=== PATIENT | female | born 1995 | race African-American/Black ===

== ENCOUNTER → 2022-10-15 | Outpatient (CLI) | payer OTHER ==
[~2022-10-15] MED LIST: ACET50CA PO; ACETAMINOPHEN 325 MG TAB As Ordered ONE; ACETAMINOPHEN TAB 650MG DOSE (2X325MG) PO PRN; CETI5SOL3 PO; LIDOCAINE 1% MDV 20ML VIAL As Ordered ONE
[2022-10-15 11:53] LABS: CSF TUBE# TP TUBE 1; TOTAL PROTEIN,CSF 10.9 MG/DL (15-45)
[2022-10-15 11:56] LABS: CSF TUBE# GLU TUBE 1
[2022-10-15 12:09] VITALS: BP 125/77
[2022-10-15 12:35] LABS: APPEARANCE, CSF CLEAR (CLEAR); COLOR, CSF COLORLESS (COLORLESS); CSF TUBE# CELL CNT TUBE 1
== END ==
LOC: M IRPRO 09:03
PROVIDERS: ATTEND Psychiatry & Neurology Neurology
DX: G93.2 Benign intracranial hypertension (principal)

== ENCOUNTER 2023-02-09 00:22 | Emergency (ER) | payer OTHER ==
[~2023-02-09] VITALS: Ht 154.9 cm; Wt 72.5 kg
[~2023-02-09 00:22] MED LIST changes: -ACETAMINOPHEN 325 MG TAB As Ordered ONE; -ACETAMINOPHEN TAB 650MG DOSE (2X325MG) PO PRN; -LIDOCAINE 1% MDV 20ML VIAL As Ordered ONE
[2023-02-09 00:24] VITALS: BP 116/58
[2023-02-09] MEDS ORDERED: ASPI81CH33 PO (00:31)
[2023-02-09] MEDS ORDERED: PREN29CH2 PO (00:31)
== END 2023-02-09 03:55 | disposition left against medical advice (07) ==
LOC: M ED 00:22
DX: Z53.21 Procedure and treatment not carried out due to patient leaving prior to being seen by health care provider (principal)

== ENCOUNTER 2023-07-12 15:28 | Inpatient (IN) | payer OTHER ==
[2023-07-12] VITALS (21 sets, daily range): BP systolic 127–166; BP diastolic 60–106
[~2023-07-12] VITALS: Ht 154.9 cm; Wt 83.5 kg
[~2023-07-12 15:28] MED LIST changes: +ASPI81CH33 PO; +PREN29CH2 PO
[2023-07-12] MEDS ORDERED: LACTATED RINGER'S 1000 ML IV STA (17:01)
[2023-07-12] MEDS ORDERED: TRANEXAMIC ACID INJection 1,000 MG in NS 100 ML IV PRN (17:05)
[2023-07-12] MEDS ORDERED: METHYLERGONOVINE MALEATE 0.2MG/ML 1ML VIAL IM PRN ×2 (17:05→23:10)
[2023-07-12] MEDS ORDERED: LIDOCAINE 1% MDV 20ML VIAL INFIL PRN (17:05)
[2023-07-12] MEDS ORDERED: OXYTOCIN DRIP 30 UNITS in IV 1 EA IV PRN ×4 (17:05)
[2023-07-12 17:10] LABS: HEMATOCRIT 45.3 % (36.0-47.0); HEMOGLOBIN 14.3 g/dl (12.0-15.5); MEAN CORPUSCULAR HEMOGLOBIN 26.5 pg (27.0-33.0); MEAN CORPUSCULAR HGB CONC 31.6 g/dl (32.0-36.5); MEAN CORPUSCULAR VOLUME 83.9 fl (80.0-96.0); PLATELET COUNT, AUTOMATED 270 10^3/uL (150-450); WHITE BLOOD COUNT 11.3 10^3/uL (4.0-10.0)
[2023-07-12] MEDS: LR 1,000 ML IV SCH ×2 (17:29→19:30)
[2023-07-12] MEDS ORDERED: diphenhydrAMINE 50MG/ML VIAL IV PRN (17:55)
[2023-07-12] MEDS ORDERED: ONDANSETRON 4MG 2ML VIAL IV PRN ×2 (17:55→23:10)
[2023-07-12] MEDS ORDERED: EPIDURAL/PCA KEYS XX PRN (17:55)
[2023-07-12] MEDS ORDERED: ePHEDrine SULFATE 25 MG/5 ML(5MG/ML) SYRINGE IVP PRN (17:55)
[2023-07-12] MEDS ORDERED: FENTANYL/ROPIVACAINE/NACL BAG 100 ML EPIDURAL SCH (17:55)
[2023-07-12] MEDS ORDERED: LR 500 ML IV PRN (17:55)
[2023-07-12] MEDS ORDERED: NALOXONE INJ 0.4MG/1ML VIAL IV PRN (17:55)
[2023-07-12 22:57] LABS: CORD GAS HCO3 V 19.9 MMOL/L; CORD GAS PCO2 V 40.7 mmHg; CORD GAS PH V 7.307 UNITS; CORD GAS PO2 V 45.4 mmHg; CORD GAS SBC V 19.4 MMOL/L; CORD GAS TCO2 V 21.1 MMOL/L
[2023-07-12 23:02] LABS: CORD GAS ABE A -8.6; CORD GAS O2 SAT A 86.7 %; CORD GAS PCO2 A 40.8 mmHg; CORD GAS PH A 7.262 UNITS; CORD GAS PO2 A 41.1 mmHg; CORD GAS SBC A 17.5 MMOL/L; CORD GAS TCO2 A 19.2 MMOL/L
[2023-07-12] MEDS ORDERED: RHOGAM 300MCG (1500IU) INJ IM SCH (23:10)
[2023-07-12] MEDS ORDERED: ACETAMINOPHEN 500 MG TAB PO SCH (23:10)
[2023-07-12] MEDS ORDERED: IBUPROFEN 800 MG TAB PO SCH (23:10)
[2023-07-12] MEDS ORDERED: LR 1,000 ML IV SCH (23:10)
[2023-07-12] MEDS ORDERED: METOCLOPRAMIDE INJ 10MG/2ML VIAL IV PRN (23:10)
[2023-07-12] MEDS ORDERED: DIBUCAINE 1% OINTMENT 30GM TOP PRN (23:10)
[2023-07-12] MEDS ORDERED: DOCUSATE SODIUM 100MG CAPSULE PO PRN (23:10)
[2023-07-12] MEDS ORDERED: OXYTOCIN DRIP 30 UNITS in IV 1 EA IV SCH (23:10)
[2023-07-12] MEDS ORDERED: OXYTOCIN 30UNITS IN 0.9% NaCl 500ML IV BAG As Ordered ONE (23:21)
[2023-07-13 00:01] VITALS: BP 141/74
[2023-07-13 02:00] VITALS: BP 113/56; O2SAT 99
[2023-07-13] MEDS: IBUPROFEN 800 MG TAB PO SCH ×3 (06:00→21:03)
[2023-07-13] MEDS ORDERED: METHYLERGONOVINE MALEATE 0.2MG/ML 1ML VIAL IM PRN (06:05)
[2023-07-13] MEDS ORDERED: ONDANSETRON 4MG 2ML VIAL IV PRN (06:05)
[2023-07-13] MEDS ORDERED: METOCLOPRAMIDE INJ 10MG/2ML VIAL IV PRN (06:05)
[2023-07-13] MEDS ORDERED: DOCUSATE SODIUM 100MG CAPSULE PO PRN (06:05)
[2023-07-13] MEDS ORDERED: RHOGAM 300MCG (1500IU) INJ IM SCH (06:05)
[2023-07-13] MEDS ORDERED: DIBUCAINE 1% OINTMENT 30GM TOP PRN (06:05)
[2023-07-13] MEDS: ACETAMINOPHEN 500 MG TAB PO SCH ×3 (07:56→17:51)
[2023-07-13] MEDS: PRENATAL VITAMINS CHEWABLE TABLET PO SCH (07:57)
[2023-07-13 08:43] VITALS: BP 136/79; O2SAT 98
[2023-07-13] MEDS ORDERED: PRENATAL VITAMINS CHEWABLE TABLET PO SCH (09:00)
[2023-07-13 09:02] LABS: HEMATOCRIT 36.6 % (36.0-47.0); MEAN CORPUSCULAR HEMOGLOBIN 27.1 pg (27.0-33.0); MEAN CORPUSCULAR VOLUME 84.7 fl (80.0-96.0); PLATELET COUNT, AUTOMATED 259 10^3/uL (150-450); RED BLOOD COUNT 4.32 10^6/uL (4.00-5.40); WHITE BLOOD COUNT 12.8 10^3/uL (4.0-10.0)
[2023-07-13 09:04] LABS: HEMOGLOBIN 11.7 g/dl (12.0-15.5)
[2023-07-13 09:27] LABS: ALBUMIN 2.6 G/DL (3.2-5.2); ALKALINE PHOSPHATASE 187 U/L (46-116); ALT/SGPT 14 U/L (7.0-40); AST/SGOT 25 U/L (<34); BILIRUBIN,TOTAL 0.5 MG/DL (0.3-1.2); BLOOD UREA NITROGEN < 5 MG/DL (9-23); CALCIUM LEVEL 8.4 MG/DL (8.5-10.1); CARBON DIOXIDE LEVEL 23 MMOL/L (20-31); CHLORIDE LEVEL 108 MMOL/L (98-107); GLOMERULAR FILTRATION RATE > 60.0 (>60); GLUCOSE, FASTING 87 MG/DL (60-100); POTASSIUM SERUM 3.9 MMOL/L (3.5-5.1); SODIUM LEVEL 139 MMOL/L (136-145); TOTAL PROTEIN 5.9 G/DL (5.7-8.2)
[2023-07-13] MEDS ORDERED: HOME MED LIST COMPLETE! XX SCH (13:30)
[2023-07-13 17:52] VITALS: BP 144/66; O2SAT 100
[2023-07-14] MEDS: ACETAMINOPHEN 500 MG TAB PO SCH ×3 (00:47→11:45)
[2023-07-14 02:00] VITALS: BP 128/71
[2023-07-14] MEDS: IBUPROFEN 800 MG TAB PO SCH ×2 (06:01→14:23)
[2023-07-14 06:48] LABS: HEMATOCRIT 37.1 % (36.0-47.0); HEMOGLOBIN 11.7 g/dl (12.0-15.5); MEAN CORPUSCULAR HEMOGLOBIN 27.1 pg (27.0-33.0); MEAN CORPUSCULAR HGB CONC 31.5 g/dl (32.0-36.5); MEAN CORPUSCULAR VOLUME 85.9 fl (80.0-96.0); PLATELET COUNT, AUTOMATED 243 10^3/uL (150-450); RED BLOOD COUNT 4.32 10^6/uL (4.00-5.40); WHITE BLOOD COUNT 9.8 10^3/uL (4.0-10.0)
[2023-07-14 07:29] VITALS: BP 128/65; O2SAT 100
[2023-07-14] MEDS: PRENATAL VITAMINS CHEWABLE TABLET PO SCH (07:42)
[2023-07-14] MEDS ORDERED: MEASLES,MUMPS,RUBELLA VACCINE INJ (MMR-II) SC.IMMUN ONE (09:00)
[2023-07-14] MEDS ORDERED: ACET-683 PO (09:54)
[2023-07-14] MEDS ORDERED: COLA100C5 PO (09:54)
[2023-07-14] MEDS ORDERED: IBUP80TA PO (09:54)
[2023-07-15] MEDS ORDERED: MEASLES,MUMPS,RUBELLA VACCINE INJ (MMR-II) SC.IMMUN ONE (09:00)
== END 2023-07-14 15:30 | disposition home or self-care (01) | DRG 807 ==
LOC: M LDO 15:28 → M LDI 16:08 → M OBS 07-13 01:55
PROVIDERS: ADMIT Obstetrics & Gynecology; ATTEND Obstetrics & Gynecology
PROC: 10E0XZZ Delivery of Products of Conception, External Approach (ICD-10-PCS; principal; 2023-07-12)
DX: O99.354 Diseases of the nervous system complicating childbirth (principal); Z37.0 Single live birth; O99.214 Obesity complicating childbirth; E66.9 Obesity, unspecified; G93.2 Benign intracranial hypertension; Z3A.38 38 weeks gestation of pregnancy